=== PATIENT | male | born 1960 | race American Indian/Alaskan Native ===

== ENCOUNTER 2019-06-15 07:19 | Inpatient (IN) | payer OTHER ==
--- NOTE | 2019-06-15 08:15 | XRay Report ---
CHEST 1 VIEW INDICATION: CYNTHIA. COMPARISON: None available. FINDINGS: Support devices: None. Heart: Upper limits of normal in size. Pulmonary vasculature: Mild central vascular congestion. Lungs/Pleura: Patchy left upper lobe and left lower lobe lung opacities. The right lung is clear. No pleural effusion. Additional findings: Median sternotomy wires. IMPRESSION: 1. Left upper lobe and left lower lobe pneumonia. Signer Name: Antione Powers MD Signed: 06/15/2019 8:10 AM Workstation Name: [id number]
[2019-06-15 08:52] LABS: Basophils % (Auto) 0.8 % (0.0-1.8); Eosinophils % (Auto) 0.1 % (0.0-4.3); Hematocrit 38.9 % (35.5-45.6); Hemoglobin 12.7 gm/dl (11.8-15.2); Lymphocytes # (Auto) 1.2 K/mm3 (1.2-5.4); Lymphocytes % (Auto) 23.9 % (13.4-35.0); Mean Corpuscular HGB Conc 33 % (32-34); Mean Corpuscular Volume 92 fl (84-94); Monocytes # (Auto) 0.6 K/mm3 (0.0-0.8); Monocytes % (Auto) 11.5 % (0.0-7.3); Platelet Count 183 K/mm3 (140-440); Red Blood Count 4.23 M/mm3 (3.65-5.03); Red Cell Distribution Width 13.8 % (13.2-15.2)
[2019-06-15 09:13] LABS: BUN/Creatinine Ratio 13; Blood Urea Nitrogen 17 mg/dL (9-20); Calcium 8.9 mg/dL (8.4-10.2); Hemolysis Index 15
--- NOTE | 2019-06-15 09:20 | Emergency Department Report ---
HPI - General Chief Complaint: Dyspnea/Respdistress Time Seen by Provider: 06/15/19 08:40 - HPI HPI: Room 22 The patient is a 58-year-old male present with a chief complaint of shortness of breath. The patient states he began to notice some dyspnea with exertion over the weekend when he was moving. The patient states he improved with rest but he again noticed the symptoms with dyspnea on exertion returning 2 days ago. Patient states the dyspnea worsened last night with walking just a few feet. Patient denies ever having chest pain. Patient admits to nonproductive cough. EMS was called secondary to the dyspnea on exertion. The patient states he attempted to walk to the ambulance but had increased work of breathing and EMS personnel states the patient became pale so he was subsequently placed on a stretcher. Patient states his last cardiac catheterization occurred in 2011 when he had his four-vessel bypass ED Past Medical Hx - Past Medical History Previous Medical History?: Yes Hx Hypertension: Yes Hx Heart Attack/AMI: Yes Hx Arthritis: Yes (Gout) - Surgical History Past Surgical History?: Yes Hx Open Heart Surgery: Yes (CABG 4v) Additional Surgical History: Quadruple bypass - Family History Family history: no significant - Social History Smoking Status: Never Smoker Substance Use Type: None (Denies illicit drug use) ED Review of Systems ROS: Stated complaint: CHEST PAIN Other details as noted in HPI Constitutional: denies: diaphoresis Eyes: denies: eye pain ENT: denies: throat pain Respiratory: shortness of breath, SOB with exertion Cardiovascular: dyspnea on exertion. denies: chest pain Endocrine: no symptoms reported Gastrointestinal: denies: vomiting Genitourinary: denies: dysuria Musculoskeletal: denies: back pain Neurological: denies: headache Physical Exam - Physical Exam Vital Signs: Vital Signs 06/15/19 06/15/19 06/15/19 07:28 07:31 07:33 Temperature 98.5 F Pulse Rate 98 H 97 H 104 H Respiratory 25 H 23 27 H Rate Blood Pressure 177/113 O2 Sat by Pulse 97 96 96 Oximetry 06/15/19 06/15/19 06/15/19 07:45 07:54 08:00 Temperature Pulse Rate 91 H 95 H Respiratory 18 18 21 Rate Blood Pressure 150/108 O2 Sat by Pulse 96 96 95 Oximetry 06/15/19 06/15/19 06/15/19 08:15 08:30 08:45 Temperature Pulse Rate 96 H 90 90 Respiratory 20 22 20 Rate Blood Pressure 147/102 146/107 157/112 O2 Sat by Pulse 95 96 98 Oximetry 06/15/19 09:00 Temperature Pulse Rate 89 Respiratory 21 Rate Blood Pressure 163/112 O2 Sat by Pulse 97 Oximetry Physical Exam: GENERAL: The patient is well-developed well-nourished male sitting on stretcher not appearing to be in acute distress. [] HEENT: Normocephalic. Atraumatic. Extraocular motions are intact. Patient has moist mucous membranes. NECK: Supple. Trachea midline CHEST/LUNGS: Clear to auscultation. There is no respiratory distress noted. HEART/CARDIOVASCULAR: Regular. There is no tachycardia. There is no gallop rub or murmur. ABDOMEN: Abdomen is soft, nontender. Patient has normal bowel sounds. There is no abdominal distention. SKIN: There is no rash. There is trace bilateral lower extremity pitting edema. There is no diaphoresis. NEURO: The patient is awake, alert, and oriented. The patient is cooperative. The patient has no focal neurologic deficits. The patient has normal speech MUSCULOSKELETAL:There is no evidence of acute injury. ED Course Vital Signs 06/15/19 06/15/19 06/15/19 07:28 07:31 07:33 Temperature 98.5 F Pulse Rate 98 H 97 H 104 H Respiratory 25 H 23 27 H Rate Blood Pressure 177/113 O2 Sat by Pulse 97 96 96 Oximetry 06/15/19 06/15/19 06/15/19 07:45 07:54 08:00 Temperature Pulse Rate 91 H 95 H Respiratory 18 18 21 Rate Blood Pressure 150/108 O2 Sat by Pulse 96 96 95 Oximetry 06/15/19 06/15/19 06/15/19 08:15 08:30 08:45 Temperature Pulse Rate 96 H 90 90 Respiratory 20 22 20 Rate Blood Pressure 147/102 146/107 157/112 O2 Sat by Pulse 95 96 98 Oximetry 06/15/19 09:00 Temperature Pulse Rate 89 Respiratory 21 Rate Blood Pressure 163/112 O2 Sat by Pulse 97 Oximetry ED Medical Decision Making - Lab Data Result diagrams: 06/15/19 08:16 06/15/19 08:16 - EKG Data -: EKG Interpreted by Pr EKG shows normal: sinus rhythm Rate: normal - EKG Data When compared to previous EKG there are: previous EKG unavailable Interpretation: other (No ischemic changes seen) - Radiology Data Radiology results: report reviewed (Chest x-ray), image reviewed (Chest x-ray) interpreted by me: Chest x-ray-left lower lobe haziness [facility] [address] [place] [address] XRay Report Signed Patient: BIB HENDRIX MR#: [id number] 7 : 1960 Acct:[id number] Age/Sex: 58 / M ADM Date: 06/15/19 Loc: ED Attending Dr: Ordering Physician: ED MD YAIR Date of Service: 06/15/19 Procedure(s): XR chest 1V ap Accession Number(s): [id number] cc: ED DOCMD Fluoro Time In Minutes: CHEST 1 VIEW INDICATION: CYNTHIA. COMPARISON: None available. FINDINGS: Support devices: None. Heart: Upper limits of normal in size. Pulmonary vasculature: Mild central vascular congestion. Lungs/Pleura: Patchy left upper lobe and left lower lobe lung opacities. The right lung is clear. No pleural effusion. Additional findings: Median sternotomy wires. IMPRESSION: 1. Left upper lobe and left lower lobe pneumonia. Signer Name: Flakita Maya MD Signed: 06/15/2019 8:10 AM Workstation Name: [id number] Transcribed By: REF Dictated By: FLAKITA MAYA MD Electronically Authenticated By: FLAKITA MAYA MD Signed Date/Time: 06/15/19809 DD/ 7 TD/TT: - Differential Diagnosis CHF, ACS, pneumonia, bronchitis Critical care attestation.: If time is entered above; I have spent that time in minutes in the direct care of this critically ill patient, excluding procedure time. ED Disposition Clinical Impression: Shortness of breath, Dyspnea on exertion, Congestive heart failure Disposition: -09 OP ADMIT IP TO THIS HOSP Is pt being admited?: Yes Does the pt Need Aspirin: Yes Condition: Fair Referrals: PRIMARY CARE,MD [Primary Care Provider] - 3-5 Days Time of Disposition: 09:32 (Hospitalist paged)
[2019-06-15] MEDS ORDERED: cefTRIAXone/NS 1 GM/50 ML 1 GM/50 ML BAG IV ONE (09:24)
[2019-06-15] MEDS ORDERED: ASPIRIN 325 MG TAB PO ONE (09:32)
[2019-06-15 10:21] LABS: INR 1.04 (0.87-1.13)
[2019-06-15] MEDS ORDERED: hydrALAZINE 20 MG/1 ML INJ IV ONE (12:55)
[2019-06-15] MEDS ORDERED: ACETAMINOPHEN 325 MG TAB PO PRN (15:35)
[2019-06-15] MEDS ORDERED: HYDROmorphone 1 MG/1 ML INJ IV PRN (15:35)
[2019-06-15] MEDS ORDERED: ONDANSETRON 4 MG/2 ML INJ IV PRN (15:35)
[2019-06-15] MEDS ORDERED: IPRATROPIUM/ALBUTEROL SULFATE 3 ML AMPUL.NEB IH PRN (15:37)
[2019-06-15] MEDS ORDERED: allopurinoL 100 MG TAB PO SCH (16:00)
[2019-06-15] MEDS ORDERED: ALBUTEROL 2.5 MG/3 ML NEBU IH PRN (16:20)
[2019-06-15] MEDS: AZITHROMYCIN 500 MG in SODIUM CHLORIDE 0.9% 250ML 250 ML IV SCH (17:16)
[2019-06-15] MEDS: HEPARIN 5,000 UNIT/1 ML VIAL SUB-Q SCH (17:18)
[2019-06-15] MEDS: COLCHICINE 0.6 MG CAP PO SCH (17:18)
[2019-06-15] MEDS: allopurinoL 300 MG TAB PO SCH (17:18)
[2019-06-15] MEDS: FAMOTIDINE 20 MG TAB PO SCH ×2 (17:22→21:55)
[2019-06-16] MEDS: HEPARIN 5,000 UNIT/1 ML VIAL SUB-Q SCH ×3 (00:13→21:03)
[2019-06-16] MEDS: oxyCODONE /ACETAMINOPHEN 5-325MG TAB PO PRN ×3 (03:54→21:00)
[2019-06-16 05:59] LABS: Basophils % (Auto) 0.7 % (0.0-1.8); Eosinophils % (Auto) 0.2 % (0.0-4.3); Hematocrit 35.6 % (35.5-45.6); Lymphocytes # (Auto) 1.5 K/mm3 (1.2-5.4); Lymphocytes % (Auto) 29.3 % (13.4-35.0); Mean Corpuscular HGB Conc 34 % (32-34); Mean Corpuscular Volume 90 fl (84-94); Monocytes # (Auto) 0.7 K/mm3 (0.0-0.8); Monocytes % (Auto) 13.6 % (0.0-7.3); Platelet Count 167 K/mm3 (140-440); Red Blood Count 3.94 M/mm3 (3.65-5.03); Red Cell Distribution Width 13.6 % (13.2-15.2)
[2019-06-16 06:19] LABS: Alanine Aminotransferase 21 units/L (7-56); Albumin 3.3 g/dL (3.9-5); BUN/Creatinine Ratio 12; Blood Urea Nitrogen 16 mg/dL (9-20); Calcium 8.6 mg/dL (8.4-10.2); Hemolysis Index 9
[2019-06-16] MEDS: COLCHICINE 0.6 MG CAP PO SCH (10:05)
[2019-06-16] MEDS: FAMOTIDINE 20 MG TAB PO SCH ×2 (10:05→21:03)
[2019-06-16] MEDS: AZITHROMYCIN 500 MG in SODIUM CHLORIDE 0.9% 250ML 250 ML IV SCH (10:05)
[2019-06-16] MEDS: allopurinoL 300 MG TAB PO SCH (10:05)
[2019-06-16] MEDS: ASPIRIN 81 MG TAB CHEW PO SCH (10:06)
[2019-06-16] MEDS: cefTRIAXone/NS 2 GM/100 ML 2 GM/100 ML BAG IV SCH (10:13)
[2019-06-16] MEDS ORDERED: FLU VACC QUAD 2019-20 (3 YR UP)/PF 60 MCG/0.5 ML SYRINGE IM ONE (12:00)
--- NOTE | 2019-06-16 17:49 | Progress Note ---
Assessment and Plan (1) Acute exacerbation of CHF (congestive heart failure) Current Visit: Yes Status: Acute Qualifiers: Heart failure type: combined systolic and diastolic Qualified Code(s): I50.43 - Acute on chronic combined systolic (congestive) and diastolic (congestive) heart failure Plan to address problem: Clinical picture consistent with acute CHF No pneumonia Radiology interpretation was pneumonia but disagree with the diagnosis Chest x-ray more consistent with CHF No white count BNP is high --- 3430 We will get echocardiogram for ejection fraction Strict I's and O's Daily weights Echo shows ejection fraction of 40 to 45% Global left ventricular systolic function is mildly decreased. No pericardial effusion. (2) Hypertension Current Visit: Yes Status: Chronic Qualifiers: Hypertension type: essential hypertension Qualified Code(s): I10 - Essential (primary) hypertension Plan to address problem: Continue antihypertensives (3) Gout Current Visit: Yes Status: Chronic Plan to address problem: Add colchicine and allopurinol (4) Coronary artery disease Current Visit: Yes Status: Chronic Qualifiers: Coronary Disease-Associated Artery/Lesion type: [place] artery [place] vs. transplanted heart: [place] heart Plan to address problem: Aspirin 81 mg once a day on a daily basis (5)Acute gout Initiated on colchicine prednisone allopurinol and Indocin (6) DVT prophylaxis Current Visit: Yes Status: Acute Plan to address problem: On heparin and GI prophylaxis Subjective Date of service: 06/16/19 Principal diagnosis: CHF exacerbation Interval history: 58-year-old -Citizen Of [place] male with history of hypertension gout and coronary artery disease comes in for increasing shortness of breath on minimal exertion. Also orthopnea. Shortness of breath consistent with class IV NYHA symptoms. No prior CHF. No fever or chills. Nonproductive cough. No recent travel. [place] has increased work of breathing of late. Noncompliant and does not see a physician. No chest pain. Symptomatically better. No cough. Severe pain left hand and warm to touch Objective - Constitutional Vitals: Vital Signs - 12hr 06/16/19 06/16/19 06/16/19 08:16 08:18 11:42 Temperature 98.1 F 97.8 F Pulse Rate 95 H 92 H 95 H Respiratory 24 22 Rate Blood Pressure 147/94 143/99 O2 Sat by Pulse 96 96 96 Oximetry General appearance: Present: no acute distress, well-nourished - EENT Eyes: PERRL, EOM intact ENT: hearing intact, clear oral mucosa Ears: bilateral: normal - Neck Neck: supple, normal ROM - Respiratory Respiratory effort: normal Respiratory: bilateral: CTA - Breasts Breasts: normal - Cardiovascular Heart rate: 78 Rhythm: regular Heart Sounds: Present: S1 & S2. Absent: gallop, rub Extremities: no ischemia, pulses intact, No edema, normal color, Full ROM - Gastrointestinal General gastrointestinal: Present: soft, non-tender, non-distended, normal bowel sounds - Genitourinary Male genitourinary: normal - Integumentary Integumentary: clear, warm, dry - Musculoskeletal Musculoskeletal: 1, strength equal bilaterally - Neurologic Neurologic: moves all extremities - Psychiatric Psychiatric: memory intact, appropriate mood/affect, intact judgment & insight - Allied health notes Allied health notes reviewed: nursing, case management - Labs CBC & Chem 7: 06/16/19 04:50 06/16/19 04:50 Labs: Abnormal lab results 06/16/19 06/16/19 Range/Units 04:50 04:50 [place] % (Auto) 13.6 H (0.0-7.3) % Chloride 107.5 H (98-107) mmol/L Carbon Dioxide 21 L (22-30) mmol/L Glucose 119 H (75-100) mg/dL Albumin 3.3 L (3.9-5) g/dL
--- NOTE | 2019-06-16 17:49 | History and Physical Report ---
History of Present Illness Date of examination: 06/15/19 Date of admission: 06/15/19 09:48 Chief complaint: SOB 3 to 4 days History of present illness: 58-year-old -[place]ish male with history of hypertension gout and coronary artery disease comes in for increasing shortness of breath on minimal exertion. Also orthopnea. Shortness of breath consistent with class IV NYHA symptoms. No prior CHF. No fever or chills. Nonproductive cough. No recent travel. Patient has increased work of breathing of late. Noncompliant and does not see a physician. No chest pain. Past Medical History Previous Medical History?: Yes Hypertension: Yes Heart Attack/AMI: Yes Arthritis: Yes (Gout) Morbid obesity Surgical History Past Surgical History?: Yes Hx Open Heart Surgery: Yes (CABG 4v) Additional Surgical History: Quadruple bypass Family History Family history: no significant Social History Smoking Status: Never Smoker Substance Use Type: None (Denies illicit drug use) Review of Systems ROS: Stated complaint: CHEST PAIN Other details as noted in HPI Constitutional: denies: diaphoresis Eyes: denies: eye pain ENT: denies: throat pain Respiratory: shortness of breath, SOB with exertion Cardiovascular: dyspnea on exertion. denies: chest pain Endocrine: no symptoms reported Gastrointestinal: denies: vomiting Genitourinary: denies: dysuria Musculoskeletal: denies: back pain Neurological: denies: headache Medications and Allergies Allergies Allergy/AdvReac Type Severity Reaction Status Date / Time No Known Allergies Allergy Verified 06/15/19 07:33 Home Medications Medication Instructions Recorded Confirmed Last Taken Type Aspirin [Aspirin BABY CHEW TAB] 81 mg PO QDAY 06/15/19 06/15/19 Unknown History Colchicine 0.6 mg PO QDAY 06/15/19 06/15/19 Unknown History allopurinoL [Zyloprim] 400 mg PO QDAY 06/15/19 06/15/19 Unknown History Active Meds: Active Medications Acetaminophen (Tylenol) 650 mg PO Q4H PRN PRN Reason: Pain MILD(1-3)/Fever >100.5/[place] Albuterol (Proventil) 2.5 mg IH Q3HRT PRN PRN Reason: Wheezing Allopurinol (Zyloprim) 300 mg PO QDAY [facility] Last Admin: 06/16/19 10:05 Dose: 300 mg Documented by: Aspirin (Baby Aspirin) 81 mg PO QDAY [facility] Last Admin: 06/16/19 10:06 Dose: 81 mg Documented by: Colchicine (Colchicine) 0.6 mg PO QDAY [facility] Last Admin: 06/16/19 10:05 Dose: 0.6 mg Documented by: Famotidine (Pepcid) 20 mg PO BID [facility] Last Admin: 06/16/19 10:05 Dose: 20 mg Documented by: Heparin Sodium (Porcine) (Heparin) 5,000 unit SUB-Q Q12HR [facility] Last Admin: 06/16/19 10:06 Dose: 5,000 unit Documented by: Hydromorphone HCl (Dilaudid) 0.5 mg IV Q3H PRN PRN Reason: Pain , Severe (7-10) Ceftriaxone Sodium (Rocephin/Ns 2 Gm/100 Ml) 2 gm in 100 mls @ 200 mls/hr IV Q24HR [facility]; Protocol Last Admin: 06/16/19 10:13 Dose: 200 mls/hr Documented by: Azithromycin 500 mg/ Sodium (Chloride) 250 mls @ 250 mls/hr IV Q24HR [facility]; Protocol Last Admin: 06/16/19 10:05 Dose: 250 mls/hr Documented by: Ondansetron HCl (Zofran) 4 mg IV Q8H PRN PRN Reason: Nausea And Vomiting Oxycodone/Acetaminophen (Percocet 5/325) 1 tab PO Q6H PRN PRN Reason: Pain, Moderate (4-6) Last Admin: 06/16/19 11:24 Dose: 1 tab Documented by: Sodium Chloride (Sodium Chloride Flush Syringe 10 Ml) 10 ml IV BID [facility] Last Admin: 06/16/19 10:05 Dose: 10 ml Documented by: Sodium Chloride (Sodium Chloride Flush Syringe 10 Ml) 10 ml IV PRN PRN PRN Reason: LINE FLUSH Exam - Constitutional Vitals: Temp Pulse Resp BP Pulse Ox 97.8 F 95 H 22 143/99 96 06/16/19 11:42 06/16/19 11:42 06/16/19 11:42 06/16/19 11:42 06/16/19 11:42 General appearance: Present: no acute distress, well-nourished - EENT Eyes: Present: PERRL ENT: hearing intact, clear oral mucosa - Neck Neck: Present: supple, normal ROM - Respiratory Respiratory effort: normal Respiratory: bilateral: CTA - Cardiovascular Heart rate: 78 Rhythm: regular Heart Sounds: Present: S1 & S2. Absent: rub, click - Extremities Extremities: pulses symmetrical, No edema Peripheral Pulses: within normal limits - Abdominal General gastrointestinal: Present: soft, non-tender, non-distended, normal bowel sounds Male genitourinary: Present: normal - Integumentary Integumentary: Present: clear, warm, dry - Musculoskeletal Musculoskeletal: gait normal, strength equal bilaterally - Psychiatric Psychiatric: appropriate mood/affect, intact judgment & insight - Neurologic Neurologic: CNII-XII intact, moves all extremities - Allied Health Allied health notes reviewed: nursing, case management CHANNING score - Channing Score Age > 65: (0) No Aspirin use within the Past 7 Days: (0) No 3 or more CAD Risk Factors: (1) Yes 2 or more Angina events in past 24 hrs: (0) No Known CAD with more than 50% Stenosis: (0) No Elevated Cardiac Markers: (0) No ST Deviation Greater than 0.5mm: (0) No CHANNING Score: 1 Results - Labs CBC & Chem 7: 06/16/19 04:50 06/16/19 04:50 Labs: Laboratory Last Values WBC 5.0 K/mm3 (4.5-11.0) 06/16/19 04:50 RBC 3.94 M/mm3 (3.65-5.03) 06/16/19 04:50 Hgb 12.0 gm/dl (11.8-15.2) 06/16/19 04:50 Hct 35.6 % (35.5-45.6) 06/16/19 04:50 MCV 90 fl (84-94) 06/16/19 04:50 MCH 30 pg (28-32) 06/16/19 04:50 MCHC 34 % (32-34) 06/16/19 04:50 RDW 13.6 % (13.2-15.2) 06/16/19 04:50 Plt Count 167 K/mm3 (140-440) 06/16/19 04:50 Lymph % (Auto) 29.3 % (13.4-35.0) 06/16/19 04:50 [place] % (Auto) 13.6 % (0.0-7.3) H 06/16/19 04:50 Eos % (Auto) 0.2 % (0.0-4.3) 06/16/19 04:50 Baso % (Auto) 0.7 % (0.0-1.8) 06/16/19 04:50 Lymph # 1.5 K/mm3 (1.2-5.4) 06/16/19 04:50 [place] # 0.7 K/mm3 (0.0-0.8) 06/16/19 04:50 Eos # 0.0 K/mm3 (0.0-0.4) 06/16/19 04:50 Baso # 0.0 K/mm3 (0.0-0.1) 06/16/19 04:50 Seg Neutrophils % 56.2 % (40.0-70.0) 06/16/19 04:50 Seg Neutrophils # 2.8 K/mm3 (1.8-7.7) 06/16/19 04:50 PT 13.7 Sec. (12.2-14.9) 06/15/19 08:16 INR 1.04 (0.87-1.13) 06/15/19 08:16 Sodium 141 mmol/L (137-145) 06/16/19 04:50 Potassium 4.1 mmol/L (3.6-5.0) 06/16/19 04:50 Chloride 107.5 mmol/L (98-107) H 06/16/19 04:50 Carbon Dioxide 21 mmol/L (22-30) L 06/16/19 04:50 Anion Gap 17 mmol/L 06/16/19 04:50 BUN 16 mg/dL (9-20) 06/16/19 04:50 Creatinine 1.3 mg/dL (0.8-1.5) 06/16/19 04:50 Estimated GFR > 60 ml/min 06/16/19 04:50 BUN/Creatinine Ratio 12 % 06/16/19 04:50 Glucose 119 mg/dL (75-100) H 06/16/19 04:50 Hemoglobin A1c 5.5 % (4-6) 06/15/19 08:05 Calcium 8.6 mg/dL (8.4-10.2) 06/16/19 04:50 Total Bilirubin 1.00 mg/dL (0.1-1.2) 06/16/19 04:50 AST 21 units/L (5-40) 06/16/19 04:50 ALT 21 units/L (7-56) 06/16/19 04:50 Alkaline Phosphatase 67 units/L (35-129) 06/16/19 04:50 NT-Pro-B Natriuret Pep 3430 pg/mL (0-900) H 06/15/19 08:16 Total Protein 6.9 g/dL (6.3-8.2) 06/16/19 04:50 Albumin 3.3 g/dL (3.9-5) L 06/16/19 04:50 Albumin/Globulin Ratio 0.9 % 06/16/19 04:50 - Imaging and Cardiology EKG: report reviewed Chest x-ray: report reviewed Imaging and Cardiology: CXR IMPRESSION: 1. Left upper lobe and left lower lobe pneumonia. My interpretation CHF Assessment and Plan Advance Directives: Yes (Full code) VTE prophylaxis?: Chemical Plan of care discussed with patient/family: Yes - Patient Problems (1) Acute exacerbation of CHF (congestive heart failure) Current Visit: Yes Status: Acute Qualifiers: Heart failure type: combined systolic and diastolic Qualified Code(s): I50. 43 - Acute on chronic combined systolic (congestive) and diastolic (congestive) heart failure Plan to address problem: Clinical picture consistent with acute CHF No pneumonia Radiology interpretation was pneumonia but disagree with the diagnosis Chest x-ray more consistent with CHF No white count BNP is high --- 3430 We will get echocardiogram for ejection fraction Strict I's and O's Daily weights Cardiology consult (2) Hypertension Current Visit: Yes Status: Chronic Qualifiers: Hypertension type: essential hypertension Qualified Code(s): I10 - Essential (primary) hypertension Plan to address problem: Continue antihypertensives (3) Gout Current Visit: Yes Status: Chronic Plan to address problem: Add colchicine and allopurinol (4) Coronary artery disease Current Visit: Yes Status: Chronic Qualifiers: Coronary Disease-Associated Artery/Lesion type: [place] artery [place] vs. transplanted heart: [place] heart Plan to address problem: Aspirin 81 mg once a day on a daily basis (5) DVT prophylaxis Current Visit: Yes Status: Acute Plan to address problem: On heparin and GI prophylaxis
[2019-06-17] MEDS: oxyCODONE /ACETAMINOPHEN 5-325MG TAB PO PRN ×2 (03:45→10:54)
[2019-06-17] MEDS ORDERED: hydrALAZINE 20 MG/1 ML INJ IV PRN (06:00)
[2019-06-17] MEDS: COLCHICINE 0.6 MG CAP PO SCH (09:48)
[2019-06-17] MEDS: allopurinoL 300 MG TAB PO SCH (09:48)
[2019-06-17] MEDS: FAMOTIDINE 20 MG TAB PO SCH (09:48)
[2019-06-17] MEDS: ASPIRIN 81 MG TAB CHEW PO SCH (09:48)
[2019-06-17] MEDS: HEPARIN 5,000 UNIT/1 ML VIAL SUB-Q SCH (09:48)
[2019-06-17] MEDS: cefTRIAXone/NS 2 GM/100 ML 2 GM/100 ML BAG IV SCH (09:50)
[2019-06-17] MEDS: AZITHROMYCIN 500 MG in SODIUM CHLORIDE 0.9% 250ML 250 ML IV SCH (10:52)
[2019-06-17 13:00] VITALS: BP 130/79
--- NOTE | 2019-06-17 14:35 | Discharge Summary ---
Providers - Providers Date of Admission: 06/15/19 09:48 Date of discharge: 06/17/19 Attending physician: VAMSI VARELA Primary care physician: TEAM ASSISTANT Hospitalization Condition: Fair Pertinent studies: Echocardiogram 40 to 45% ejection fraction Global left ventricular systolic function is mildly decreased. LV diastolic function indeterminate The left atrium is mildly dilated Right ventricle is mildly dilated No pericardial effusion. Left ventricle Global left ventricular systolic function is mildly decreased. LV diastolic function indeterminate. The estimated ejection fraction is 40 to 45%. Hospital course: 1)CHF exacerbation with systolic failure Heart failure type: combined systolic and diastolic Qualified Code(s): I50.43 - Acute on chronic combined systolic (congestive) and diastolic (congestive) heart failure Plan to address problem: Clinical picture consistent with acute CHF No pneumonia Radiology interpretation was pneumonia but disagree with the diagnosis Chest x-ray more consistent with CHF No white count BNP is high --- 3430 We will get echocardiogram for ejection fraction Strict I's and O's Daily weights Echo shows ejection fraction of 40 to 45% (2) Hypertension Current Visit: Yes Status: Chronic Qualifiers: Hypertension type: essential hypertension Qualified Code(s): I10 - Essential (primary) hypertension Plan to address problem: Continue antihypertensives (3) Gout Current Visit: Yes Status: Chronic Plan to address problem: Add colchicine and allopurinol (4) Coronary artery disease Current Visit: Yes Status: Chronic Qualifiers: Coronary Disease-Associated Artery/Lesion type: [place] artery [place] vs. transplanted heart: [place] heart Plan to address problem: Aspirin 81 mg once a day on a daily basis (5)Acute gout Initiated on colchicine prednisone allopurinol and Indocin (6) DVT prophylaxis Current Visit: Yes Status: Acute Plan to address problem: On heparin and GI prophylaxis Disposition: DC-01 TO HOME OR SELFCARE Core Measure Documentation - Palliative Care Palliative Care/ Comfort Measures: Not Applicable - Core Measures Any of the following diagnoses?: none Exam - Constitutional Vitals: Temp Pulse Resp BP Pulse Ox 97.9 F 99 H 18 130/79 96 06/17/19 11:41 06/17/19 11:41 06/17/19 11:41 06/17/19 11:41 06/17/19 11:41 General appearance: Present: no acute distress, well-nourished - EENT Eyes: Present: PERRL ENT: hearing intact, clear oral mucosa - Neck Neck: Present: supple, normal ROM - Respiratory Respiratory effort: normal Respiratory: bilateral: CTA - Cardiovascular Heart rate: 78 Rhythm: regular Heart Sounds: Present: S1 & S2. Absent: rub, click - Extremities Extremities: no ischemia, pulses intact, pulses symmetrical, No edema Peripheral Pulses: within normal limits - Abdominal General gastrointestinal: Present: soft, non-tender, non-distended, normal bowel sounds Male genitourinary: Present: normal - Rectal Rectal Exam: deferred - Integumentary Integumentary: Present: clear, warm, dry - Musculoskeletal Musculoskeletal: gait normal, strength equal bilaterally - Psychiatric Psychiatric: appropriate mood/affect, intact judgment & insight - Neurologic Neurologic: CNII-XII intact, moves all extremities - Allied Health Allied health notes reviewed: nursing, case management Plan Activity: no restrictions Diet: low fat, low cholesterol, low salt Follow up with: PRIMARY CARE, [Primary Care Provider] - 3-5 Days LASHAE MARINELLI MD [Staff Physician] - 7 Days
== END 2019-06-17 16:58 | disposition home or self-care (01) | DRG 293 ==
LOC: EDBD → ED 07:19 → 4A 09:48
PROVIDERS: ADMIT Internal Medicine; ATTEND Internal Medicine
DX: I11.0 Hypertensive heart disease with heart failure (principal); I50.43 Acute on chronic combined systolic (congestive) and diastolic (congestive) heart failure; M10.9 Gout, unspecified; E66.01 Morbid (severe) obesity due to excess calories; I25.10 Atherosclerotic heart disease of native coronary artery without angina pectoris; I25.2 Old myocardial infarction; Z68.29 Body mass index [BMI] 29.0-29.9, adult; Z95.1 Presence of aortocoronary bypass graft; Z79.82 Long term (current) use of aspirin; Z79.899 Other long term (current) drug therapy
CPT/HCPCS: 36415; 71045; 80048; 80053; 83036; 83880; 85025; 85610; 87040; 90686; 93005; 93010; 93306; 94640; 94760; 96365; G0378; J0360; J0456; J0696; J1170; J1644; J7050

== ENCOUNTER 2020-02-18 10:18 | Emergency (ER) | payer SELFPAY ==
[2020-02-18 10:23] VITALS: BP 187/113
[2020-02-18] MEDS ORDERED: KETOROLAC 30 MG/1 ML INJ IM ONE (10:41)
[2020-02-18] MEDS ORDERED: dexAMETHasone 20 MG/5 ML VIAL IV ONE (10:41)
[2020-02-18] MEDS ORDERED: COLCHICINE 0.6 MG CAP PO ONE (10:41)
[2020-02-18] MEDS ORDERED: cloNIDine 0.1 MG TAB PO ONE (10:41)
--- NOTE | 2020-02-18 10:45 | Emergency Department Report ---
ED General Adult HPI - General Chief complaint: Extremity Injury, Upper Stated complaint: RT HAND SWOLLEN Time Seen by Provider: 02/18/20 10:39 Source: patient Mode of arrival: Ambulatory Limitations: No Limitations - History of Present Illness Initial comments: The patient was evaluated in the emergency department for symptoms described in the history of present illness. He/she was evaluated in the context of the global COVID-19 pandemic, which necessitated consideration that the patient might be at risk for infection with the virus that causes COVID-19. Institutional protocols and algorithms that pertain to the evaluation of patients at risk for COVID-19 are in a state of rapid change based on information released by regulatory bodies including the CDC and federal and state organizations. These policies and algorithms were followed during the patient's care in the emergency department. Please note that these policies, procedures and recommendations changed on a rapid basis. 59-year-old -[place] male presents to the emergency room for right hand pain and swelling with a history of gout. Patient states that it started last night. Patient states that he has taken Aleve without much relief of pain. Patient states that he has a history of high blood pressure and has been off of his medication since June. Patient's was recently seen in the hospital in June 2019 and was discharged on carvedilol allopurinol Jose Juan [place] potassium furosemide colchicine and a baby aspirin. Patient has not taken since June. Patient denies any chest pain or shortness of breath. Patient does have a history of heart attack as well as a CABG for 4 vessels quadruple bypass. Onset/Timin -: days(s) Location: right, upper extremity (And) Severity scale (0 -10): 10 Quality: stabbing, aching Consistency: constant Improves with: none Worsens with: none Associated Symptoms: denies other symptoms Treatments Prior to Arrival: none - Related Data Previous Rx's Medication Instructions Recorded Last Taken Type Aspirin [Aspirin BABY CHEW TAB] 81 mg PO QDAY #100 tab.chew 02/18/20 Unknown Rx Colchicine 0.6 mg PO BID #14 cap 02/18/20 Unknown Rx Furosemide [Lasix TAB] 20 mg PO QDAY #30 tablet 02/18/20 Unknown Rx Indomethacin [Indocin] 50 mg RC TID #10 supp.rect 02/18/20 Unknown Rx Potassium Chloride [K-Dur] 10 meq PO QDAY #30 tablet 02/18/20 Unknown Rx Valsartan 80 mg PO QDAY #30 tablet 02/18/20 Unknown Rx allopurinoL [Zyloprim] 300 mg PO QDAY #30 02/18/20 Unknown Rx carvediloL [Coreg] 3.125 mg PO BID #60 tablet 02/18/20 Unknown Rx prednisoLONE [Millipred 5mg (6 day 20 mg PO QDAY #7 tab.ds.pk 02/18/20 Unknown Rx 21 tab dosepak)] Allergies Allergy/AdvReac Type Severity Reaction Status Date / Time No Known Allergies Allergy Verified 06/15/19 07:33 ED Review of Systems ROS: Stated complaint: RT HAND SWOLLEN Other details as noted in HPI Comment: All other systems reviewed and negative ED Past Medical Hx - Past Medical History Previous Medical History?: Yes Hx Hypertension: Yes Hx Heart Attack/AMI: Yes Hx Arthritis: Yes (Gout) Additional medical history: Gout - Surgical History Past Surgical History?: Yes Hx Open Heart Surgery: Yes (CABG 4v) Additional Surgical History: Quadruple bypass - Social History Smoking Status: Never Smoker Substance Use Type: Prescribed - Medications Home Medications: Home Medications Medication Instructions Recorded Confirmed Last Taken Type Aspirin [Aspirin BABY CHEW TAB] 81 mg PO QDAY #100 tab.chew 02/18/20 Unknown Rx Colchicine 0.6 mg PO BID #14 cap 02/18/20 Unknown Rx Furosemide [Lasix TAB] 20 mg PO QDAY #30 tablet 02/18/20 Unknown Rx Indomethacin [Indocin] 50 mg RC TID #10 supp.rect 02/18/20 Unknown Rx Potassium Chloride [K-Dur] 10 meq PO QDAY #30 tablet 02/18/20 Unknown Rx Valsartan 80 mg PO QDAY #30 tablet 02/18/20 Unknown Rx allopurinoL [Zyloprim] 300 mg PO QDAY #30 02/18/20 Unknown Rx carvediloL [Coreg] 3.125 mg PO BID #60 tablet 02/18/20 Unknown Rx prednisoLONE [Millipred 5mg (6 day 20 mg PO QDAY #7 tab.ds.pk 02/18/20 Unknown Rx 21 tab dosepak)] ED Physical Exam - General Limitations: No Limitations General appearance: alert, in no apparent distress - Head Head exam: Present: atraumatic, normocephalic - Eye Eye exam: Present: normal appearance - ENT ENT exam: Present: mucous membranes moist - Neck Neck exam: Present: normal inspection, full ROM - Respiratory Respiratory exam: Absent: accessory muscle use - Extremities Exam Extremities exam: Present: normal inspection, full ROM - Expanded Upper Extremity Exam Right Shoulder Exam: Present: normal inspection, full ROM Upper Arm exam: Present: normal inspection, full ROM Elbow exam: Present: normal inspection, full ROM Forearm Wrist exam: Present: normal inspection, full ROM Hand Wrist exam: Present: full ROM, tenderness, swelling, erythema. Absent: abrasion - Neurological Exam Neurological exam: Present: alert, oriented X3, normal gait - Psychiatric Psychiatric exam: Present: normal affect, normal mood - Skin Skin exam: Present: warm, dry, intact, normal color. Absent: rash ED Course Vital Signs 02/18/20 10:21 Temperature 98.0 F Pulse Rate 99 H Respiratory 18 Rate Blood Pressure 187/113 O2 Sat by Pulse 97 Oximetry ED Medical Decision Making - Medical Decision Making 59-year-old -[place] male presents to the emergency room for right hand pain and swelling with a history of gout. Patient states that it started last night. Patient states that he has taken Aleve without much relief of pain. Patient states that he has a history of high blood pressure and has been off of his medication since June. Patient's was recently seen in the hospital in June 2019 and was discharged on carvedilol allopurinol Jose Juan [place] potassium furosemide colchicine and a baby aspirin. Patient has not taken since June. Patient denies any chest pain or shortness of breath. Patient does have a history of heart attack as well as a CABG for 4 vessels quadruple bypass. Patient's given clonidine, colchicine 1.2 mg, Toradol 30 mg IM, dexamethasone 10 mg IM. Patient will be discharged home with a prescription of colchicine, furosemide, indomethacin, potassium 10 mEq, valsartan 80 mg daily allopurinol 300 mg and carvedilol 3.125 mg twice a day. Patient will be referred to [facility]. Critical care attestation.: If time is entered above; I have spent that time in minutes in the direct care of this critically ill patient, excluding procedure time. ED Disposition Clinical Impression: Gout, Hypertension Disposition: - TO HOME OR SELFCARE Is pt being admited?: No Does the pt Need Aspirin: No Condition: Stable Instructions: Hypertension (ED) Additional Instructions: It is very very important for you to follow-up with a primary care provider and a operation manager. It is more important for you to take your medications as prescribed. Be sure to increase your water intake by 2 to 3 L daily. Prescriptions: Aspirin [Aspirin BABY CHEW TAB] 81 mg PO QDAY #100 tab.chew Colchicine 0.6 mg PO BID #14 cap carvediloL [Coreg] 3.125 mg PO BID #60 tablet Indomethacin [Indocin] 50 mg RC TID #10 supp.rect Potassium Chloride [K-Dur] 10 meq PO QDAY #30 tablet Furosemide [Lasix TAB] 20 mg PO QDAY #30 tablet prednisoLONE [Millipred 5mg (6 day 21 tab dosepak)] 20 mg PO QDAY #7 tab.ds.pk Valsartan 80 mg PO QDAY #30 tablet allopurinoL [Zyloprim] 300 mg PO QDAY #30 Referrals: [facility] [Provider Group] - 3-5 Days SESAR NAIK MD [Staff Physician] - 3-5 Days ANA HERNANDEZ MD [Staff Physician] - 3-5 Days Forms: Work/School Release Form(ED)
== END 2020-02-18 11:13 | disposition home or self-care (01) ==
LOC: ED 10:18
DX: I10 Essential (primary) hypertension (principal); M10.9 Gout, unspecified; I25.2 Old myocardial infarction; Z79.899 Other long term (current) drug therapy; Z98.890 Other specified postprocedural states; Z95.1 Presence of aortocoronary bypass graft
CPT/HCPCS: 96372; 96374; 99283; J1100; J1885